=== PATIENT | female | born 1960 | race Caucasian/White ===

== ENCOUNTER 2017-09-26 12:16 | Day surgery (SDC) | payer OTHER ==
[2017-09-26] MEDS ORDERED: MIDAZOLAM 1 MG/ML 2 ML INJ ×4 (15:18)
[2017-09-26] MEDS ORDERED: FENTAnyl 50 MCG/ML VIAL (15:18)
== END 2017-09-26 15:33 | disposition home or self-care (01) ==
LOC: GIL 12:16
DX: K92.1 Melena (principal); K29.60 Other gastritis without bleeding; K64.8 Other hemorrhoids
CPT/HCPCS: 43239; 88305; 88312